=== PATIENT | male | born 1985 | race Caucasian/White ===

== ENCOUNTER 2016-11-02 12:20 | Emergency (ER) | payer MEDICAID ==
[~2016-11-02] VITALS: Ht 180.3 cm; Wt 104.6 kg
[2016-11-02 12:21] VITALS: BP 135/94
== END 2016-11-02 13:43 ==
LOC: ED 13:37
DX: F15.180 Other stimulant abuse with stimulant-induced anxiety disorder (principal); F15.151 Other stimulant abuse with stimulant-induced psychotic disorder with hallucinations; F20.9 Schizophrenia, unspecified; F17.200 Nicotine dependence, unspecified, uncomplicated
CPT/HCPCS: 99284

== ENCOUNTER 2016-11-30 23:45 | Emergency (ER) | payer MEDICAID ==
[~2016-11-30] VITALS: Ht 177.8 cm; Wt 97.9 kg
[2016-11-30 23:47] VITALS: BP 140/82
== END 2016-12-01 01:47 | disposition home or self-care (01) ==
LOC: ED 23:59
DX: F15.10 Other stimulant abuse, uncomplicated (principal); F41.9 Anxiety disorder, unspecified; F20.9 Schizophrenia, unspecified
CPT/HCPCS: 99283; 99284